=== PATIENT | female | born 1980 | race Caucasian/White ===

== ENCOUNTER 2022-06-03 22:33 | Emergency (ER) | payer OTHER ==
[2022-06-03 23:50] LABS: ESTIMATED GFR 109 mL/min (>60)
[2022-06-03] MEDS ORDERED: Sodium Chloride 0.9% 1,000 ML IV ONE (23:57)
[2022-06-04] MEDS ORDERED: cefTRIAXone 2 GM Vial IVPUSH ONE (00:11)
== END 2022-06-04 01:12 | disposition home or self-care (01) ==
LOC: FB.ED 22:33
DX: J10.00 Influenza due to other identified influenza virus with unspecified type of pneumonia (principal); J18.9 Pneumonia, unspecified organism; M06.9 Rheumatoid arthritis, unspecified; Z79.899 Other long term (current) drug therapy; Z88.8 Allergy status to other drugs, medicaments and biological substances
CPT/HCPCS: 36415; 71046; 80053; 83605; 85025; 96361; 96374; 99285; J0696; J7030